=== PATIENT | male | born 1960 | race Hispanic/Latino ===

== ENCOUNTER 2020-06-08 14:19 | Emergency (ER) | payer OTHER ==
[2020-06-08] MEDS ORDERED: KEFLEX500 M1 PO (17:30)
[2020-06-08 17:53] VITALS: BP 132/102
== END 2020-06-08 17:54 | disposition home or self-care (01) | DRG 605 ==
LOC: ED 14:19
DX: S61.210A Laceration without foreign body of right index finger without damage to nail, initial encounter (principal); I10 Essential (primary) hypertension; W31.89XA Contact with other specified machinery, initial encounter